=== PATIENT | male | born 1955 | race Caucasian/White ===

== ENCOUNTER 2023-02-25 15:47 | Inpatient (IN) | payer OTHER ==
[2023-02-25] MEDS ORDERED: Morphine 4 MG/ML VIAL ONE ×2 (17:22→19:57)
[2023-02-25 17:28] LABS: #Basophils 0.1 10x3/uL (0.0-0.2); #Eosinphils 0.3 10x3/uL (0.0-0.5); #Monocytes 0.8 10x3/uL (0.0-1.1); #Neutrophils 5.4 10x3/uL (1.5-8.4); %Basophils 1.1 % (0.0-2.0); %Eosinophils 3.2 % (0.0-6.0); %Lymphocytes 19.3 % (18.0-47.0); %Monocytes 10.3 % (0.0-10.0); %Neutrophils 65.9 % (40.0-75.0); Hemoglobin 14.5 g/dL (13.5-17.5); Mean Corpuscular HGB CONC 33.7 g/dL (32.0-36.0); Mean Corpuscular Hemoglobin 30.1 pg (27.0-33.0); Mean Corpuscular Volume 89.2 fl (81.2-95.1); Platelet Count 229 10x3/uL (150-450); RBC Distribution Width 13.6 % (11.5-14.5); Red Blood Cell (RBC) Count 4.82 10x6/uL (4.32-5.72); White Blood Cell (WBC) Count 8.1 10x3/uL (3.5-10.5)
[2023-02-25] MEDS ORDERED: Clindamycin/D5W 900 MG in Premix Bag 1 BAG IVPB SCH (17:30)
[2023-02-25] MEDS ORDERED: Vancomycin 1 GM VIAL ONE (17:36)
[2023-02-25 18:59] LABS: ALT (SGPT) 19 U/L (8-55); AST (SGOT) 21 U/L (5-34); Albumin 3.6 g/dL (3.4-4.8); Alkaline Phosphatase 76 U/L (40-110); Anion Gap 15 mmol/L (10-20); BUN (Urea Nitrogen) 8 mg/dL (8.4-25.7); Bilirubin, Total 0.4 mg/dL (0.2-1.2); Calc. Creatinine Clearance 0 mL/min (70-130); Calcium 8.8 mg/dL (7.8-10.44); Carbon Dioxide 20 mmol/L (23-31); Chloride 107 mmol/L (98-107); Estimated GFR 101; Globulin 3.8 g/dL (2.4-3.5); Glucose 142 mg/dL (80-115); Potassium 4.1 mmol/L (3.5-5.1); Protein, Total 7.4 g/dL (5.8-8.1); Sodium 138 mmol/L (136-145)
[2023-02-25] MEDS ORDERED: Ketorolac Tromethamine 30 MG/ML VIAL ONE (19:58)
[2023-02-25 21:09] LABS: SARS-CoV-2 NAA Rapid Test Not Detected (NotDetected)
[2023-02-26] MEDS ORDERED: HYDROcodone/Acetaminophen 5/325 mg Tablet ONE (02:40)
[2023-02-26] MEDS ORDERED: Clopidogrel Bisulfate 75 MG TAB ONE (08:13)
[2023-02-26] MEDS ORDERED: Lisinopril 10 MG TAB ONE (08:14)
[2023-02-26] MEDS ORDERED: VANCOMYCIN 1.75 GM/350 ML BAG 1.75 GM in Premix Bag 1 BAG IVPB SCH (08:30)
[2023-02-26] MEDS ORDERED: Dextrose 50% Abboject 50 ML SYRINGE SLOW IVP PRN (15:36)
[2023-02-26] MEDS ORDERED: Dextrose 5% in Water 1,000 ML IV PRN (15:36)
[2023-02-26] MEDS ORDERED: HumaLOG 300 UNITS/3 ML VIAL SC PRN (15:36)
[2023-02-26] MEDS ORDERED: Acetaminophen 325 MG TAB PO PRN (15:38)
[2023-02-26 19:49] VITALS: BMI 38.7
[2023-02-26] MEDS ORDERED: Vancomycin 1 GM in Premix Bag 1 BAG IVPB SCH (21:00)
[2023-02-26] MEDS: Mometasone 100 MCG/PUFF (1 INHALER) INH SCH (21:25)
[2023-02-26] MEDS: Morphine 2 MG/ML VIAL SLOW IVP PRN (21:41)
[2023-02-26] MEDS: VANCOMYCIN 1.75 GM/350 ML BAG 1.75 GM in Premix Bag 1 BAG IVPB SCH (21:46)
[2023-02-26] MEDS: Atorvastatin Calcium 40 MG TAB PO SCH (21:46)
[2023-02-26] MEDS: Terazosin HCl 5 MG CAP PO SCH (21:47)
[2023-02-26] MEDS: Lantus 1000 UNITS/10 ML VIAL SC SCH (21:48)
[2023-02-26] MEDS: Loratadine 10 MG TAB PO PRN (22:43)
[2023-02-27 05:26] LABS: Anion Gap 14 mmol/L (10-20); BUN (Urea Nitrogen) 8 mg/dL (8.4-25.7); Calc. Creatinine Clearance 150 mL/min (70-130); Calcium 9.2 mg/dL (7.8-10.44); Carbon Dioxide 24 mmol/L (23-31); Chloride 103 mmol/L (98-107); Estimated GFR 95; Glucose 212 mg/dL (80-115); Sodium 137 mmol/L (136-145)
[2023-02-27 05:27] LABS: #Basophils 0.1 10x3/uL (0.0-0.2); #Eosinphils 0.3 10x3/uL (0.0-0.5); #Monocytes 0.9 10x3/uL (0.0-1.1); %Basophils 0.6 % (0.0-2.0); %Eosinophils 3.2 % (0.0-6.0); %Lymphocytes 17.5 % (18.0-47.0); %Monocytes 10.6 % (0.0-10.0); %Neutrophils 67.8 % (40.0-75.0); Hemoglobin 14.2 g/dL (13.5-17.5); Mean Corpuscular HGB CONC 32.7 g/dL (32.0-36.0); Mean Corpuscular Hemoglobin 29.8 pg (27.0-33.0); Mean Platelet Volume 11.1 fl (7.4-10.4); Platelet Count 195 10x3/uL (150-450); RBC Distribution Width 13.6 % (11.5-14.5); Red Blood Cell (RBC) Count 4.77 10x6/uL (4.32-5.72); White Blood Cell (WBC) Count 8.9 10x3/uL (3.5-10.5)
[2023-02-27] MEDS: Mometasone 100 MCG/PUFF (1 INHALER) INH SCH ×2 (07:55→22:06)
[2023-02-27] MEDS ORDERED: Potassium Chloride 10 MEQ TAB PO SCH (08:00)
[2023-02-27] MEDS ORDERED: VANCOMYCIN 1.75 GM/350 ML BAG ONE (08:22)
[2023-02-27] MEDS: VANCOMYCIN 1.75 GM/350 ML BAG 1.75 GM in Premix Bag 1 BAG IVPB SCH (08:35)
[2023-02-27] MEDS: Aspirin 81 mg Enteric Coated Tablet PO SCH (08:38)
[2023-02-27] MEDS: DULoxetine 30 MG CAP PO SCH (08:38)
[2023-02-27] MEDS: Clopidogrel Bisulfate 75 MG TAB PO SCH (08:38)
[2023-02-27] MEDS ORDERED: Lisinopril 10 MG TAB PO SCH (09:00)
[2023-02-27] MEDS ORDERED: DULoxetine 60 MG CAP PO SCH (09:00)
[2023-02-27] MEDS ORDERED: Amlodipine 5 MG TAB PO SCH (12:45)
[2023-02-27] MEDS ORDERED: Sulfameth/Trimethoprim DS 800-160mg TAB PO SCH (12:45)
[2023-02-27] MEDS ORDERED: Amoxicillin/Potassium Clav 875 MG TAB PO SCH (12:45)
[2023-02-27] MEDS ORDERED: HumaLOG 300 UNITS/3 ML VIAL SC PRN ×2 (13:00)
[2023-02-27] MEDS: Morphine 2 MG/ML VIAL SLOW IVP PRN ×2 (13:10→20:17)
[2023-02-27] MEDS: Amoxicillin/Potassium Clav 875 MG TAB PO SCH (20:15)
[2023-02-27] MEDS: Terazosin HCl 5 MG CAP PO SCH (20:15)
[2023-02-27] MEDS: Atorvastatin Calcium 40 MG TAB PO SCH (20:15)
[2023-02-27] MEDS: Metoprolol Tartrate 25 MG TAB PO SCH (20:16)
[2023-02-27] MEDS: Lantus 1000 UNITS/10 ML VIAL SC SCH (20:16)
[2023-02-27] MEDS: Sulfameth/Trimethoprim DS 800-160mg TAB PO SCH (20:16)
[2023-02-27] MEDS: Loratadine 10 MG TAB PO PRN (20:34)
[2023-02-27] MEDS ORDERED: FLUTICASONE PROPIONATE 110 MCG EA NARE SCH (21:00)
[2023-02-28] MEDS: Mometasone 100 MCG/PUFF (1 INHALER) INH SCH ×2 (07:45→20:03)
[2023-02-28] MEDS: Morphine 2 MG/ML VIAL SLOW IVP PRN ×3 (09:34→21:29)
[2023-02-28] MEDS: Amoxicillin/Potassium Clav 875 MG TAB PO SCH ×2 (09:35→21:27)
[2023-02-28] MEDS: Sulfameth/Trimethoprim DS 800-160mg TAB PO SCH ×2 (09:36→21:26)
[2023-02-28] MEDS: Amlodipine 5 MG TAB PO SCH (09:36)
[2023-02-28] MEDS: Clopidogrel Bisulfate 75 MG TAB PO SCH (09:37)
[2023-02-28] MEDS: Metoprolol Tartrate 25 MG TAB PO SCH ×2 (09:37→21:25)
[2023-02-28] MEDS: Aspirin 81 mg Enteric Coated Tablet PO SCH (09:37)
[2023-02-28] MEDS: DULoxetine 30 MG CAP PO SCH (09:37)
[2023-02-28 13:04] LABS: Anion Gap 14 mmol/L (10-20); BUN (Urea Nitrogen) 10 mg/dL (8.4-25.7); Calc. Creatinine Clearance 154 mL/min (70-130); Calcium 9.4 mg/dL (7.8-10.44); Carbon Dioxide 22 mmol/L (23-31); Chloride 104 mmol/L (98-107); Estimated GFR 96; Glucose 164 mg/dL (80-115); Potassium 4.5 mmol/L (3.5-5.1); Sodium 135 mmol/L (136-145)
[2023-02-28] MEDS: Loratadine 10 MG TAB PO PRN (21:25)
[2023-02-28] MEDS: Terazosin HCl 5 MG CAP PO SCH (21:25)
[2023-02-28] MEDS: Atorvastatin Calcium 40 MG TAB PO SCH (21:27)
[2023-02-28] MEDS: Lantus 1000 UNITS/10 ML VIAL SC SCH (21:34)
[2023-03-01 05:43] LABS: Anion Gap 14 mmol/L (10-20); BUN (Urea Nitrogen) 13 mg/dL (8.4-25.7); Calc. Creatinine Clearance 144 mL/min (70-130); Calcium 9.5 mg/dL (7.8-10.44); Carbon Dioxide 25 mmol/L (23-31); Chloride 101 mmol/L (98-107); Estimated GFR 94; Glucose 136 mg/dL (80-115); Potassium 4.4 mmol/L (3.5-5.1); Sodium 136 mmol/L (136-145)
[2023-03-01] MEDS: Mometasone 100 MCG/PUFF (1 INHALER) INH SCH (09:40)
[2023-03-01] MEDS: Metoprolol Tartrate 25 MG TAB PO SCH (09:47)
[2023-03-01] MEDS: Amoxicillin/Potassium Clav 875 MG TAB PO SCH (09:47)
[2023-03-01] MEDS: Clopidogrel Bisulfate 75 MG TAB PO SCH (09:47)
[2023-03-01] MEDS: Amlodipine 5 MG TAB PO SCH (09:47)
[2023-03-01] MEDS: DULoxetine 30 MG CAP PO SCH (09:47)
[2023-03-01] MEDS: Aspirin 81 mg Enteric Coated Tablet PO SCH (09:47)
[2023-03-01] MEDS: Sulfameth/Trimethoprim DS 800-160mg TAB PO SCH (09:47)
[2023-03-01 12:12] VITALS: BP 146/67; TEMP 97.7
== END 2023-03-01 14:18 | DRG 603 ==
LOC: CSHERS 15:47 → EEVIPCON 15:47 → CSHERHOLD 02-26 14:46 → CSHTELE 02-26 15:53
PROVIDERS: ADMIT Family Medicine; ATTEND Family Medicine
DX: L03.116 Cellulitis of left lower limb (principal); I25.10 Atherosclerotic heart disease of native coronary artery without angina pectoris; I10 Essential (primary) hypertension; E78.5 Hyperlipidemia, unspecified; M06.9 Rheumatoid arthritis, unspecified; E11.9 Type 2 diabetes mellitus without complications; K21.9 Gastro-esophageal reflux disease without esophagitis; E66.9 Obesity, unspecified; M19.90 Unspecified osteoarthritis, unspecified site; J44.9 Chronic obstructive pulmonary disease, unspecified; Z20.822 Contact with and (suspected) exposure to COVID-19; Z86.73 Personal history of transient ischemic attack (TIA), and cerebral infarction without residual deficits; Z98.890 Other specified postprocedural states; Z88.0 Allergy status to penicillin; Z78.1 Physical restraint status; Z68.38 Body mass index [BMI] 38.0-38.9, adult
CPT/HCPCS: 36415; 36416; 80048; 80053; 83605; 84484; 85025; 86140; 87040; 87070; 87077; 87205; 93005; 93010; 93923; 94640; 94664; 97139; J1650; J1815; J1885; J2270; J2272; J3370; J3490; J7611; U0002